=== PATIENT | female | born 1985 | race African-American/Black ===

== ENCOUNTER 2024-05-15 16:36 | Emergency (ER) | payer SELFPAY ==
[~2024-05-15] VITALS: Ht 149.9 cm; Wt 105.0 kg
[2024-05-15] MEDS ORDERED: ORPHENADRINE CITRATE 30 MG/ML AMP IM ONE (17:10)
[2024-05-15] MEDS ORDERED: KETOROLAC TROMETHAMINE 30 MG/ML SDV IM ONE (17:10)
[2024-05-15] MEDS ORDERED: METHOCARBAMOL 500 MG/TAB PO ONE (17:30)
[2024-05-15 17:43] VITALS: BP 139/89
[2024-05-15 18:00] VITALS: BP 129/87
[2024-05-15] MEDS ORDERED: TRAMADOL HYDROC50 M1 PO (18:13)
[2024-05-15] MEDS ORDERED: NAPROXEN500 MG PO (18:13)
[2024-05-15] MEDS ORDERED: PREDNISONE50 MG PO (18:13)
[2024-05-15] MEDS ORDERED: FLEXERIL5 M1 PO (18:14)
[2024-05-15 18:15] VITALS: BP 129/87
[2024-05-15] MEDS ORDERED: MORPHINE SULFATE 4 MG/ML VIAL IM ONE (18:15)
[2024-05-15] MEDS ORDERED: ONDANSETRON 4 MG/TAB ODT PO ONE (18:15)
== END 2024-05-15 18:28 | disposition home or self-care (01) | DRG 556 ==
LOC: ED 16:36
DX: M25.552 Pain in left hip (principal); M16.12 Unilateral primary osteoarthritis, left hip